=== PATIENT | male | born 1985 | race Caucasian/White ===

== ENCOUNTER → 2016-12-07 | Outpatient (CLI) | payer BC ==
[~2016-12-07] MED LIST: AMLO10TA PO; ASPI81TA83 PO; COZA50TA18 PO; OMEP20TA7 PO; ROCALTROL PO; [UNRECOGNIZED DRUG - OTHER]; drisdol PO; labetalol PO
== END ==
LOC: M SMT 14:11
PROVIDERS: ATTEND Internal Medicine Gastroenterology
DX: K51.90 Ulcerative colitis, unspecified, without complications (principal); K92.1 Melena; Z12.11 Encounter for screening for malignant neoplasm of colon

== ENCOUNTER → 2017-02-11 | Outpatient (REF) | payer BC | LOC: M LAB REF 17:36 | PROVIDERS: ATTEND Internal Medicine | DX: E78.00 Pure hypercholesterolemia, unspecified (principal) ==

== ENCOUNTER → 2017-04-21 | Outpatient (CLI) | payer BC ==
--- NOTE | 2017-04-27 15:17 | SLEEPHOME ---
DATE OF PROCEDURE: 04/21/2017 REFERRING PROVIDER: Maureen Russell NP INTERPRETATION: Diagnostic home sleep testing was performed due to concern for the obstructive sleep apnea syndrome in this patient with a history of excessive somnolence and nonrestorative sleep. For testing, a NOX-T3 respiratory monitoring device was used. Continuous record was made of pulse, oxygen saturation, air flow, chest and abdominal strain, and body position. 9 hours and 59 minutes of data were reviewed. There were 7 hours and 58 minutes marked as time in bed. During the interval marked time in bed, there were 250 respiratory events identified of 10 seconds in duration or greater for a respiratory event index of 31.4. The events were primarily obstructive. Baseline heart rate was 81 beats per minute. Pulse rate ranged 60 to 111. Baseline saturation was 93%. Lowest oxygen saturation 87%. Testing was performed in both the supine and nonsupine positions. IMPRESSION: Abnormal home sleep testing with repetitive respiratory events and oxygen desaturations to 87% with a respiratory event index of 31.4 is consistent with the obstructive sleep apnea syndrome. RECOMMENDATION: Given the severity of disease and the oxygen desaturations identified, the patient should be referred for in laboratory pressure titration and formal sleep evaluation.
== END ==
LOC: M SLEEP HO 13:41
PROVIDERS: ATTEND Nurse Practitioner Adult Health
DX: G47.33 Obstructive sleep apnea (adult) (pediatric) (principal)

== ENCOUNTER → 2017-08-24 | Outpatient (REF) | payer BC | LOC: M LAB REF 17:53 | PROVIDERS: ATTEND Internal Medicine | DX: E78.00 Pure hypercholesterolemia, unspecified (principal) ==

== ENCOUNTER → 2017-08-29 | Outpatient (REF) | payer BC | LOC: M LAB REF 16:51 | PROVIDERS: ATTEND Internal Medicine Nephrology | DX: N05.9 Unspecified nephritic syndrome with unspecified morphologic changes (principal) ==

== ENCOUNTER → 2018-10-16 | Outpatient (REF) | payer BC | LOC: M LAB REF 12:27 | PROVIDERS: ATTEND Internal Medicine | DX: N18.3 Chronic kidney disease, stage 3 (moderate) (principal) ==

== ENCOUNTER → 2018-12-07 | Outpatient (CLI) | payer BC | LOC: M SMT 13:47 | PROVIDERS: ATTEND Nurse Practitioner Family | DX: K51.90 Ulcerative colitis, unspecified, without complications (principal) ==

== ENCOUNTER → 2019-05-16 | Outpatient (CLI) | payer BC ==
--- NOTE | 2019-05-16 11:35 | REP ---
RIGHT FOREARM, AP AND LATERAL: There is no evidence of an acute fracture, dislocation or intrinsic bone disease. No gross soft tissue abnormality is seen. IMPRESSION: No fracture or dislocation. No gross soft tissue abnormality is seen. Further evaluation may be made with MRI. Electronically Signed by Seferino Cueva MD 05/16/2019 02:40 P
== END ==
LOC: M RAD 10:16
PROVIDERS: ATTEND Physician Assistant
DX: R22.31 Localized swelling, mass and lump, right upper limb (principal)

== ENCOUNTER → 2019-08-31 | Outpatient (REF) | payer BC | LOC: M LAB REF 13:35 | PROVIDERS: ATTEND Internal Medicine | DX: N18.3 Chronic kidney disease, stage 3 (moderate) (principal) ==

== ENCOUNTER → 2020-03-07 | Outpatient (REF) | payer BC ==
[2020-03-07 17:27] LABS: FOLATE 18.6 NG/ML
[2020-03-08 08:08] LABS: LDL DIRECT 52 mg/dL (0-99)
== END ==
LOC: M LAB REF 11:36
PROVIDERS: ATTEND Internal Medicine
DX: N18.3 Chronic kidney disease, stage 3 (moderate) (principal)

== ENCOUNTER → 2020-05-01 | Outpatient (REF) | payer BC | LOC: M PLALAB 12:56 | PROVIDERS: ATTEND Internal Medicine Nephrology | DX: Z94.0 Kidney transplant status (principal) ==

== ENCOUNTER → 2020-05-05 | Outpatient (REF) | payer BC | LOC: M PLALAB 11:36 | PROVIDERS: ATTEND Internal Medicine Nephrology | DX: Z94.0 Kidney transplant status (principal) ==

== ENCOUNTER → 2020-05-05 | Outpatient (REF) | payer BC | LOC: M PLALAB 11:34 | PROVIDERS: ATTEND Nurse Practitioner Family | DX: K51.90 Ulcerative colitis, unspecified, without complications (principal); K57.30 Diverticulosis of large intestine without perforation or abscess without bleeding; K64.0 First degree hemorrhoids; K62.5 Hemorrhage of anus and rectum; E73.9 Lactose intolerance, unspecified; Z83.71 Family history of colonic polyps ==

== ENCOUNTER → 2020-09-09 | Outpatient (REF) | payer BC ==
[2020-09-11 08:09] LABS: LDL DIRECT 62 mg/dL (0-99)
== END ==
LOC: M LAB REF 16:22
PROVIDERS: ATTEND Internal Medicine
DX: E78.00 Pure hypercholesterolemia, unspecified (principal)

== ENCOUNTER → 2021-07-28 | Outpatient (REF) | payer BC | LOC: M LAB REF 16:34 | PROVIDERS: ATTEND Internal Medicine | DX: E78.00 Pure hypercholesterolemia, unspecified (principal) ==

== ENCOUNTER → 2024-10-22 | Outpatient (CLI) | payer BC | LOC: M RAD 08:16 | PROVIDERS: ATTEND Nurse Practitioner Family | DX: R10.9 Unspecified abdominal pain (principal); K80.20 Calculus of gallbladder without cholecystitis without obstruction; K76.0 Fatty (change of) liver, not elsewhere classified ==

== ENCOUNTER → 2025-05-13 | Outpatient (REF) | payer BC | LOC: M LAB REF 10:05 | PROVIDERS: ATTEND Internal Medicine Gastroenterology | DX: K51.90 Ulcerative colitis, unspecified, without complications (principal) ==